=== PATIENT | female | born 1995 | race Two or more races ===

== ENCOUNTER 2019-10-04 05:35 | Day surgery (SDC) | payer OTHER ==
[~2019-10-04 05:35] MED LIST: GRALISE600 MG PO; MOTRIN PO
== END 2019-10-04 10:25 | disposition home or self-care (01) ==
LOC: CIR.AMB 05:35 → ADM 13:45 → CIR.AMB 13:45
DX: M65.841 Other synovitis and tenosynovitis, right hand (principal)

== ENCOUNTER 2020-02-28 05:30 | Day surgery (SDC) | payer OTHER | END 2020-02-28 11:15 | disposition home or self-care (01) | LOC: CIR.AMB 05:30 → ADM 12:45 → CIR.AMB 12:45 | PROVIDERS: ATTEND Surgery Surgery of the Hand | DX: M65.142 Other infective (teno)synovitis, left hand (principal) ==